=== PATIENT | male | born 1985 | race Caucasian/White ===

== ENCOUNTER 2023-03-26 12:05 | Day surgery (SDC) | payer OTHER ==
[2023-03-24 11:13] VITALS: BMI 46.1
[2023-03-26] MEDS ORDERED: Midazolam HCl 2 mg/2 ml Vial ONE (14:11)
[2023-03-26] MEDS ORDERED: PROPOFOL 200 MG/20 ML VIAL ONE (14:26)
== END 2023-03-26 16:07 | disposition home or self-care (01) ==
LOC: SDC 12:05
PROVIDERS: ATTEND Internal Medicine Gastroenterology
PROC: 0DBN8ZX Excision of Sigmoid Colon, Via Natural or Artificial Opening Endoscopic, Diagnostic (ICD-10-PCS; principal; 2023-03-26)
PROC: 0DBK8ZX Excision of Ascending Colon, Via Natural or Artificial Opening Endoscopic, Diagnostic (ICD-10-PCS; principal; 2023-03-26)
PROC: 0DBL8ZX Excision of Transverse Colon, Via Natural or Artificial Opening Endoscopic, Diagnostic (ICD-10-PCS; principal; 2023-03-26)
PROC: 0DBM8ZX Excision of Descending Colon, Via Natural or Artificial Opening Endoscopic, Diagnostic (ICD-10-PCS; principal; 2023-03-26)
DX: E61.1 Iron deficiency (principal); R15.2 Fecal urgency; R19.5 Other fecal abnormalities; R19.7 Diarrhea, unspecified; G47.30 Sleep apnea, unspecified; Z90.49 Acquired absence of other specified parts of digestive tract
CPT/HCPCS: 88305; J2250; J2704